=== PATIENT | female | born 1950 | race Caucasian/White ===

== ENCOUNTER 2016-08-06 12:39 | Observation (INO) | payer OTHER ==
[~2016-08-06] VITALS: Ht 157.5 cm; Wt 108.0 kg
[~2016-08-06 12:39] MED LIST: CLOP75TA PO; IBUP-974 PO; LISI10TA11 PO; [UNRECOGNIZED DRUG - CODE] PO
[2016-08-06 12:46] VITALS: BP 127/67
--- NOTE | 2016-08-06 15:51 | NUR ---
Patient taken to bed 06 via wheelchiar per tech.
[2016-08-06] MEDS ORDERED: NACL 0.9% 1,000 ML IV ONE (15:55)
[2016-08-06] MEDS ORDERED: ASPIRIN 81 MG TAB.CHEW PO ONE (15:55)
--- NOTE | 2016-08-06 16:00 | NUR ---
PT PRESENTS TO ER W/C/O CHEST PAIN SINCE THIS AM. HX CVA IN 1998 AND HTN. PAIN SCALE OF 10/10.PT STATES IT ALL STARTED TODAY.HX OF HTN AND CVA;AAOX4;DENIES SOB/N/V/F AT THIS TIME;STEADY GAIT;UNLABORED BREATHING W/SYMMETRICAL CHEST EXPANSION;HOB ELEVATED;NEEDS ATTENDED;SAFETY MEASURES DONE;ALL MONITORS IN PLACED;MD MADE AWARE OF PT'S CONDITION.
--- NOTE | 2016-08-06 16:02 | NUR ---
Dr. Goodrich evaluating patient at bedside.
[2016-08-06] MEDS ORDERED: NITROGLYCERIN 2% 1 GM PKT TP ONE (16:10)
[2016-08-06] MEDS ORDERED: KETOROLAC 30 MG/ML VIAL IVP ONE (16:10)
[2016-08-06 16:23] LABS: BASOPHILS # (AUTO) 0.2 K/uL (0.00-0.22); BASOPHILS % (AUTO) 2.7 % (0.0-2.0); EOSINOPHILS # (AUTO) 0.2 K/uL (0-0.4); EOSINOPHILS % (AUTO) 3.3 % (0.0-4.0); HEMATOCRIT 42.7 % (36-48); HEMOGLOBIN 13.9 g/dL (12.0-16.0); LYMPHOCYTES # (AUTO) 2.4 K/uL (2.5-16.5); LYMPHOCYTES % (AUTO) 31.9 % (20.5-51.1); MEAN CORPUSCULAR HEMOGLOBIN 29 pg (27-31); MEAN CORPUSCULAR HGB CONC 33 g/dL (33-37); MEAN CORPUSCULAR VOLUME 89 fL (80-94); MONOCYTES # (AUTO) 0.5 K/uL (0.8-1.0); MONOCYTES % (AUTO) 7.1 % (1.7-9.3); NEUTROPHILS # (AUTO) 4.2 K/uL (1.8-7.7); PLATELET COUNT (AUTO) 215 K/uL (140-450); RED BLOOD CELL COUNT(AUTO) 4.78 MIL/uL (4.20-5.40); RED CELL DISTRIBUTION WIDTH 13.5 % (11.6-13.7); WHITE BLOOD COUNT (AUTO) 7.5 K/uL (4.8-10.8)
[2016-08-06 16:42] LABS: ANION GAP 12.4 (8-16); CARBON DIOXIDE 27.6 mmol/L (21-32); CREATININE 0.8 mg/dL (0.6-1.3)
[2016-08-06 16:48] LABS: ALBUMIN 3.7 g/dL (3.4-5.0); INR 1.2 (0.8-1.2); PARTIAL THROMBOPLASTIN TIME 26.8 secs (22-35.6); TOTAL BILIRUBIN 0.3 mg/dL (0.0-1.0)
--- NOTE | 2016-08-06 17:09 | NUR ---
PT RESTING ON BED;NO ACUTE DISTRESS NOTED AT THIS TIME;WILL CONTINUE TO MONITOR PT.
--- NOTE | 2016-08-06 18:10 | NUR ---
PT IS SLEEPING;PUT O2 AT 2 LPM DUE TO O2 SAT IS 93%.O2 SAT WENT UP TO 97%
[2016-08-06] MEDS ORDERED: HYDROcodone/APAP 5/325 MG 1 TAB TAB PO PRN (18:40)
[2016-08-06] MEDS ORDERED: ACETAMINOPHEN 325 MG TAB PO PRN (18:40)
[2016-08-06] MEDS ORDERED: ONDANSETRON 4 MG/2 ML VIAL IVP PRN (18:40)
--- NOTE | 2016-08-06 19:15 | NUR ---
REPORT GIVEN TO LINK GARCIA.
--- NOTE | 2016-08-06 19:51 | NUR ---
Patient will be admitted to care of DR. DONALD. Admited to ICU. Will go to room 5. Belongings list completed. Report to REYNALDO MAZA.
[2016-08-06 20:09] VITALS: BP 153/68
--- NOTE | 2016-08-06 20:09 | NUR ---
RECEIVED PATIENT FROM ER, REPORT GIVEN BY RADHA/RN. PATIENT IS AAOX4, SR ON THE MONITOR, DENIES CHEST PAIN, IVF NS AT 100 ML.HR, IV SITE ON RIGHT HAND PATENT. SKIN INTACT, DENIES PAIN, HOB ELEVATED.
--- NOTE | 2016-08-06 20:19 | NUR ---
Pt report given to REYNALDO MAZA. Transfer of care at this time.
[2016-08-06] MEDS ORDERED: PNEUMOCOCCAL VACCINE 23 MCG/0.5 ML VIAL IMVAC SCH (20:40)
[2016-08-06] MEDS ORDERED: PHENYTOIN 100 MG CAPER PO ONE (21:55)
[2016-08-06] MEDS: PHENYTOIN 100 MG CAPER PO SCH (22:11)
[2016-08-07] VITALS: BP 118/61
--- NOTE | 2016-08-07 | NUR ---
PATIENT ASLEEP. EASILY AROUSED, SR ON THE MONITOR, DENIES CHEST PAIN, KEPT COMFORTABLE.
[2016-08-07 00:49] LABS: CREATINE KINASE MB 0.5 ng/mL (0-3.6)
--- NOTE | 2016-08-07 03:56 | NUR ---
PATIENT DENIES CHEST PAIN, NO SOB, TURNED AND REPOSITIONED, CALL LIGHT WITHIN REACH.
[2016-08-07 04:04] VITALS: BP 125/81
--- NOTE | 2016-08-07 04:50 | NUR ---
PT WAS TRANSFERRED FROM ICU TO TELE UNIT. RECEIVED REPORT FROM BUSINESS AGENT REYNALDO. PT AAOX4. PT'S VS STABLE, PT DENIES PAIN. PT'S SKIN IS INTACT. PT HAS IV TO RIGHT HAND G 22 SL. ORIENTED PT TO ROOM AND SURROUNDINGS AND USE OF CALL LIGHT. EXPLAINED PLAN OF CARE TO PT AND SHE VERBALIZES UNDERSTANDING. CALL LIGHT WITHIN REACH.
--- NOTE | 2016-08-07 04:54 | NUR ---
PATIENT TRANSFERRED TO [facility] PER WORM SORTER PERLA. REPORT GIVEN TO NANDA/LINK. PATIENT IN STABLE CONDITION. INFORMED PATIENT'S DAUGHTER KAYLEY THAT PATIENT WAS MOVED TO [facility].
[2016-08-07 05:47] LABS: BASOPHILS # (AUTO) 0.1 K/uL (0.00-0.22); BASOPHILS % (AUTO) 1.2 % (0.0-2.0); EOSINOPHILS # (AUTO) 0.2 K/uL (0-0.4); EOSINOPHILS % (AUTO) 2.9 % (0.0-4.0); HEMATOCRIT 38.3 % (36-48); HEMOGLOBIN 12.6 g/dL (12.0-16.0); LYMPHOCYTES # (AUTO) 1.8 K/uL (2.5-16.5); MEAN CORPUSCULAR HEMOGLOBIN 29 pg (27-31); MEAN CORPUSCULAR HGB CONC 33 g/dL (33-37); MEAN CORPUSCULAR VOLUME 89 fL (80-94); MONOCYTES # (AUTO) 0.5 K/uL (0.8-1.0); MONOCYTES % (AUTO) 7.3 % (1.7-9.3); NEUTROPHILS % (AUTO) 60.6 % (42.2-75.2); PLATELET COUNT (AUTO) 190 K/uL (140-450); RED BLOOD CELL COUNT(AUTO) 4.29 MIL/uL (4.20-5.40); RED CELL DISTRIBUTION WIDTH 13.7 % (11.6-13.7); WHITE BLOOD COUNT (AUTO) 6.6 K/uL (4.8-10.8)
[2016-08-07 05:50] LABS: ALBUMIN 3.1 g/dL (3.4-5.0); ANION GAP 13.7 (8-16); CALCIUM 8.1 mg/dL (8.5-10.1); CREATININE 0.8 mg/dL (0.6-1.3); POTASSIUM 3.7 mmol/L (3.5-5.1); TOTAL BILIRUBIN 0.3 mg/dL (0.0-1.0); TOTAL PROTEIN, SERUM 6.8 g/dL (6.4-8.2)
--- NOTE | 2016-08-07 06:05 | NUR ---
PT PLACED ON SEIZURE PRECAUTIONS, CALL LIGHT WITHIN REACH.
--- NOTE | 2016-08-07 07:05 | NUR ---
ENDORSED PLAN OF CARE TO LINK [place] FOR CONTINUITY OF CARE. PT IN STABLE CONDITION.
--- NOTE | 2016-08-07 07:25 | NUR ---
RECEIVED PT IN BED ALERT, AWAKE, ORIENTED X4. NO SOB NOTED. ON ROOM AIR. BREATHING EVEN AND UNLABORED. DENIES ANY PAIN OR DISCOMFORT AT THIS TIME. PT VERBALIZED NEED TO USE THE BATHROOM. BEDPAN OFFERED, PT ABLE TO VOID 250 ML OF YELLOW CLEAR URINE. PT HAS A HISTORY OF RIGHT SIDED WEAKNESS. POSITIVE BOWEL SOUNDS NOTED ON FOUR QUADRANTS. SAFETY PRECAUTION IN PLACE. CALL LIGHT WITHIN REACH.
[2016-08-07] MEDS ORDERED: REGADENOSON 0.4 MG/5 ML SYR IV ONE (07:30)
--- NOTE | 2016-08-07 07:30 | NUR ---
KEPT PT ON NPO FOR SCHEDULED LEXISCAN
[2016-08-07 08:00] VITALS: BP 123/50
[2016-08-07 08:32] LABS: CREATINE KINASE MB 0.6 ng/mL (0-3.6)
--- NOTE | 2016-08-07 08:40 | NUR ---
PATIENT HAS BEEN SCREENED AND CATEGORIZED HIGH NUTRITION RISK. PATIENT WILL BE SEEN WITHIN 1-2 DAYS OF ADMISSION. 08/07/16-08/08/[address]
[2016-08-07] MEDS ORDERED: ASPIRIN 325 MG TAB PO SCH (09:00)
[2016-08-07] MEDS ORDERED: ASPIRIN 325 MG TABEC PO SCH (09:00)
[2016-08-07] MEDS: PHENYTOIN 100 MG CAPER PO SCH ×3 (09:00→17:10)
[2016-08-07] MEDS ORDERED: ENOXAPARIN 40 MG/0.4 ML SYR SUBQ SCH (09:00)
[2016-08-07] MEDS ORDERED: LISINOPRIL 10 MG TAB PO SCH (09:00)
--- NOTE | 2016-08-07 09:00 | NUR ---
ALL MEDS SCHEDULED PO AND LOVENOX HELD, DUE TO PT IS SCHEDULED FOR LEXISCAN. PT MAINTAINED NPO.
--- NOTE | 2016-08-07 09:26 | NUR ---
CALLED DR. TORRES MADE AWARE THAT PT IS UNDER HIS CARE AND SCHEDULED FOR [facility].
--- NOTE | 2016-08-07 11:37 | NUR ---
YASMEEN FROM NUCLEAR DEPARTMENT CAME AND WHEELED PT FOR THE LEXISCAN. PT ON STABLE CONDITION DENIES ANY PAIN OR DISCOMFORT AT THIS TIME.
[2016-08-07 14:00] VITALS: BP 140/70
--- NOTE | 2016-08-07 15:05 | NUR ---
PT CAME BACK FROM [facility]. WITH NUCLEAR MEDICINE DEPARTMENT STAFF YASMEEN. PT ON STABLE CONDITION. DENIES ANY PAIN OR DISCOMFORT AT THIS TIME.
--- NOTE | 2016-08-07 18:00 | NUR ---
DISCHARGE ORDERS MADE BY DR. NULL AND CARRIED OUT. HEALTH TEACHINGS GIVEN. DISCHARGE INSTRUCTION DONE AND SIGNED BY PT. VITAL SIGNS STABLE. PT ON STABLE CONDITION. ARM BAND REMOVED. IV CANNULA REMOVED AND INTACT. WHEELED PT OUTSIDE BY RN WITH FAMILY TO THEIR FAMILY OWNED VEHICLE.
[2016-08-07 18:44] VITALS: BP 132/55
[2016-08-08] MEDS ORDERED: CLOPIDOGREL 75 MG TAB PO SCH (09:00)
== END 2016-08-07 18:00 | disposition home or self-care (01) ==
LOC: MED 12:39 → UNDOADMIN 18:44 → MIC 18:44 → MTU 08-07 05:00
PROVIDERS: ADMIT Internal Medicine Pulmonary Disease; ATTEND Internal Medicine Pulmonary Disease
DX: R07.9 Chest pain, unspecified (principal); R56.9 Unspecified convulsions; Z86.79 Personal history of other diseases of the circulatory system
CPT/HCPCS: 36415; 71010; 80053; 80185; 82550; 82553; 83735; 84443; 84484; 85025; 85610; 85730; 87081; 93005; 93017; 96361; 96374; 99285; A9500; A9502; G0378; J1885; J2785; J7030

== ENCOUNTER 2017-07-11 18:57 | Inpatient (IN) | payer OTHER ==
[~2017-07-11] VITALS: Ht 160 cm; Wt 101.6 kg
[~2017-07-11 18:57] MED LIST changes: +PHEN-1900 PO; -[UNRECOGNIZED DRUG - CODE] PO
[2017-07-11 19:13] VITALS: BP 136/66
--- NOTE | 2017-07-11 19:13 | NUR ---
PT TAKEN TO BED 3
--- NOTE | 2017-07-11 19:35 | NUR ---
CAME IN WITH C/O HEADACHE LAST NIGHT, AND CHEST PAIN STARTED THIS MORNING AT 1100HOURSPATIENT PRESENTS TO ED WITH CHEST PAIN . PT C/O HEADACHE LAST NIGHT, AND CHEST PAIN STARTED THIS MORNING AT 1100HOURS . SKIN IS PINK/WARM/DRY; AAOX4 WITH EVEN AND STEADY GAIT; LUNGS CLEAR BL; HR EVEN AND REGULAR; PT DENIES ANY FEVER, CP, SOB, OR COUGH AT THIS TIME; PATIENT STATES PAIN OF 9/10 AT THIS TIME; PATIENT POSITIONED FOR COMFORT; HOB ELEVATED; BEDRAILS UP X2; BED DOWN. ER MD MADE AWARE OF PT STATUS.
--- NOTE | 2017-07-11 19:35 | NUR ---
Patient being evaluated by physician at bedside.
--- NOTE | 2017-07-11 19:48 | NUR ---
X-RAY AT BEDSIDE
[2017-07-11 20:06] LABS: BASOPHILS # (AUTO) 0.3 K/uL (0.00-0.22); EOSINOPHILS # (AUTO) 0.2 K/uL (0-0.4); HEMATOCRIT 39.2 % (36-48); HEMOGLOBIN 12.7 g/dL (12.0-16.0); LYMPHOCYTES # (AUTO) 1.7 K/uL (2.5-16.5); MEAN CORPUSCULAR HEMOGLOBIN 28 pg (27-31); MEAN CORPUSCULAR HGB CONC 32 g/dL (33-37); MEAN CORPUSCULAR VOLUME 87 fL (80-94); MONOCYTES # (AUTO) 0.5 K/uL (0.8-1.0); NEUTROPHILS # (AUTO) 2.9 K/uL (1.8-7.7); PLATELET COUNT (AUTO) 195 K/uL (140-450); RED BLOOD CELL COUNT(AUTO) 4.49 MIL/uL (4.20-5.40); RED CELL DISTRIBUTION WIDTH 14.6 % (11.6-13.7); WHITE BLOOD COUNT (AUTO) 5.6 K/uL (4.8-10.8)
[2017-07-11 20:22] LABS: ANION GAP 11.8 (8-16); CARBON DIOXIDE 26.8 mmol/L (21-32); CREATININE 0.9 mg/dL (0.6-1.3); POTASSIUM 3.6 mmol/L (3.5-5.1)
[2017-07-11 20:48] LABS: ALBUMIN 3.2 g/dL (3.4-5.0); TOTAL BILIRUBIN 0.2 mg/dL (0.0-1.0)
[2017-07-11] MEDS ORDERED: diphenhydrAMINE 50 MG/ML VIAL IVP ONE (21:05)
[2017-07-11] MEDS ORDERED: PROCHLORPERAZINE 10 MG/2 ML VIAL IVP ONE (21:05)
[2017-07-11] MEDS ORDERED: ONDANSETRON 4 MG/2 ML VIAL IVP PRN (21:20)
[2017-07-11] MEDS ORDERED: ACETAMINOPHEN 325 MG TAB PO PRN (21:20)
[2017-07-11] MEDS ORDERED: MORPHINE SULFATE 2 MG/ML SYR IVP PRN (21:20)
--- NOTE | 2017-07-11 21:44 | NUR ---
Patient will be admitted to care of . Admited to TELE FLOOR. Will go to rooM 106. Belongings list completed. Report to MADELIN MAZA.
--- NOTE | 2017-07-11 21:44 | NUR ---
Pt transferred to Tele via BED TO 106A .
[2017-07-11 21:50] VITALS: BP 130/51
--- NOTE | 2017-07-11 21:50 | NUR ---
RECIEVED PT FROM ER IN STABLE CONDITION. HANDOFF REPORT FROM FUNMILAYO MAZA. PT AAOX4, NO S/S OF DISTRESS NOTED. RR EVEN/UNLABORED. IV TO R HAND 22G, PATENT AND INTACT, SALINE LOCKED. BOWEL SOUNDS PRESENT. SKIN WARM AND DRY TO TOUCH, SKIN IS INTACT. PT PRESENTED TO ER WITH CHEST PAIN, DENIES CHEST PAIN AT THIS TIME. DAUGHTER AT THE BEDSIDE WITH PT. INITIAL ASSESSMENT COMPLETED. PLAN OF CARE DISCUSSED WITH PT AND DAUGHTER, ALL SAFETY PRECAUTIONS MET, CALL LIGHT WITHIN REACH, WILL CONTINUE TO MONITOR.
[2017-07-12] VITALS: BP 115/58
--- NOTE | 2017-07-12 | NUR ---
PT RESTING COMFORTABLY IN BED,NO S/S OF DISTRESS NOTED. ALL SAFETY PRECAUTIONS MET, WILL CONTINUE TO MONITOR.
--- NOTE | 2017-07-12 02:12 | NUR ---
PT RESTING COMFORTABLY IN BED,NO S/S OF DISTRESS NOTED. ALL SAFETY PRECAUTIONS MET, WILL CONTINUE TO MONITOR.
[2017-07-12 04:00] VITALS: BP 110/68
[2017-07-12 04:21] LABS: HEMATOCRIT 38.3 % (36-48); HEMOGLOBIN 12.4 g/dL (12.0-16.0); MEAN CORPUSCULAR HEMOGLOBIN 29 pg (27-31); MEAN CORPUSCULAR HGB CONC 32 g/dL (33-37); MEAN CORPUSCULAR VOLUME 88 fL (80-94); PLATELET COUNT (AUTO) 183 K/uL (140-450); RED BLOOD CELL COUNT(AUTO) 4.35 MIL/uL (4.20-5.40); RED CELL DISTRIBUTION WIDTH 14.3 % (11.6-13.7); WHITE BLOOD COUNT (AUTO) 6.5 K/uL (4.8-10.8)
[2017-07-12 04:47] LABS: ANION GAP 10.5 (8-16); CARBON DIOXIDE 26.2 mmol/L (21-32); CREATININE 0.8 mg/dL (0.6-1.3); POTASSIUM 3.7 mmol/L (3.5-5.1); TOTAL BILIRUBIN 0.2 mg/dL (0.0-1.0)
[2017-07-12 05:33] LABS: CREATINE KINASE MB 0.6 ng/mL (0-3.6)
[2017-07-12 05:40] LABS: EOSINOPHILS % (MANUAL) 3 % (0-4); LYMPHOCYTES % (MANUAL) 35 % (20-46); MONOCYTES % (MANUAL) 6 % (5-12)
--- NOTE | 2017-07-12 07:32 | NUR ---
REPORT GIVEN TO DAY SHIFT NURSE FOR CONTINUITY OF CARE, PT IN STABLE CONDITION
--- NOTE | 2017-07-12 07:33 | NUR ---
RECEIVED REPORT FROM BODY SHOP MECHANIC NURSE AT BEDSIDE FOR CONTINUITY OF CARE. PATIENT RESTING WITH EYES CLOSED. EASILY WOKEN. NO ACUTE DISTRESS NOTED. AT THIS TIME . PT WITH SL. TO RIGHT HAND 22G. WILL CONT TO MONITOR.
[2017-07-12 08:00] VITALS: BP 134/59
--- NOTE | 2017-07-12 08:00 | NUR ---
INITIAL ASSESSMENT PERFORMED. PATIENT ALERT AND ABLE TO MAKE NEEDS KNOWN. ENGLISH SPEAKING. NO ACUTE DISTRESS NOTED. PATIENT WITH SL TO RIGHT HAND 22G. PATENT AND INTACT. LUNG SOUNDS CLEAR X ALL LOBES. BOWEL SOUNDS ACTIVE. PATIENT VERBALIZED CHEST PAIN IMPROVED SINCE LAST NIGHT. STATED 08/05 THIS AM PATIENT REFUSED PAIN MEDICATION WHEN OFFERED. STATED IT WAS IMPROVED AND TOLERABLE. SKIN INTACT. DISCUSSED PLAN OF CARE AT BEDSIDE. PATIENT VERBALIZED UNDERSTANDING AND AGREEMENT. CALL LIGHT WITHIN REACH. WILL CONT TO MONITOR.
[2017-07-12] MEDS ORDERED: LISINOPRIL 10 MG TAB PO SCH (09:00)
[2017-07-12] MEDS ORDERED: ENOXAPARIN 30 MG/0.3 ML SYR SUBQ SCH (09:00)
[2017-07-12] MEDS ORDERED: CLOPIDOGREL 75 MG TAB PO SCH (09:00)
[2017-07-12] MEDS ORDERED: ASPIRIN 81 MG TAB.CHEW PO SCH (09:00)
[2017-07-12] MEDS: PHENYTOIN 100 MG CAPER PO SCH ×2 (09:07→13:04)
--- NOTE | 2017-07-12 09:22 | NUR ---
PT REFUSED ASA. STATED THAT SHE TAKES PLAVIX AND DOES NOT WANT TO TAKE ASA. EXPLAINED RISKS AND BENEFITS X 3. PATIENT CONT TO REFUSE. WILL CONT TO MONITOR PT.
--- NOTE | 2017-07-12 10:14 | NUR ---
PT RESTING IN BED WITH EYES CLOSED. NO ACUTE DISTRESS NOTED. RESP EVEN AND UNLABORED. EASILY WOKEN. WILL CONT TO MONITOR.
[2017-07-12 12:00] VITALS: BP 131/48
--- NOTE | 2017-07-12 12:30 | NUR ---
PATIENT ALERT AND ABLE TO MAKE NEEDS KNOWN. NO ACUTE DISTRESS NOTED. PATIENT AWARE OF DC PENDING AUTO BODY ESTIMATOR CLEARANCE. FRIEND AT BEDSIDE. CALL LIGHT WITHIN REACH. WILL CONT TO MONITOR.
--- NOTE | 2017-07-12 14:29 | NUR ---
PATIENT RESTING IN BED WITH EYES CLOSED . NO ACUTE DISTRESS NOTED. RESP EVEN AND UNLABORED. CALL LIGHT WITHIN REACH. WILL CONT TO MONITOR.
--- NOTE | 2017-07-12 15:40 | NUR ---
DISCHARGE ORDER PLACED BY DR AGUIRRE. PT MADE AWARE AND IN AGREEMENT. GATHERING DISCHARGE INSTRUCTIONS.
--- NOTE | 2017-07-12 16:10 | NUR ---
DISCHARGE INSTRUCTIONS GIVEN TO PATIENT PATIENT VERBALIZED UNDERSTANDING AND AGREEMENT. ALL BELONGINGS ACCOUNTED FOR. DISCUSSED MEDICATION REGIMEN PATIENT VERBALIZED UNDERSTANDING AND AGREEMENT.IV TO RIGHT HAND REMOVED LUMEN INTACT. PT TOLERATED WELL. TELE MONITOR REMOVED. ID BANDS REMOVED. INSTRUCTED PATIENT TO INFORM WHEN READY TO BE ESCORTED TO FRONT OF LOBBY.
--- NOTE | 2017-07-12 16:20 | NUR ---
ESCORTED PATIENT OUT OF UNIT TO FRONT LOBBY. PATIENT LEFT FACILITY WITHOUT DIFFICULTIES VIA PRIVATE VEHICLE .
== END 2017-07-12 16:20 | disposition home or self-care (01) | DRG 206 ==
LOC: MED 18:57 → MTU 21:21
PROVIDERS: ADMIT Internal Medicine; ATTEND Internal Medicine
DX: M94.0 Chondrocostal junction syndrome [Tietze] (principal); E03.9 Hypothyroidism, unspecified; I10 Essential (primary) hypertension; G40.909 Epilepsy, unspecified, not intractable, without status epilepticus; R73.03 Prediabetes; Z86.73 Personal history of transient ischemic attack (TIA), and cerebral infarction without residual deficits
CPT/HCPCS: 36415; 71045; 80053; 82550; 82553; 83690; 83880; 84484; 85025; 87081; 93005; 96374; 96375; 99285; J0780; J1200; J1650; Q0092

== ENCOUNTER 2017-11-12 22:34 | Emergency (ER) | payer OTHER ==
[~2017-11-12] VITALS: Ht 154.9 cm; Wt 111.8 kg
[2017-11-12 22:48] VITALS: BP 117/60
[2017-11-12 23:46] LABS: WHITE BLOOD COUNT (AUTO) 6.7 K/uL (4.8-10.8)
[2017-11-12 23:47] LABS: HEMATOCRIT 39.5 % (36-48); HEMOGLOBIN 12.9 g/dL (12.0-16.0); MEAN CORPUSCULAR HEMOGLOBIN 29 pg (27-31); MEAN CORPUSCULAR HGB CONC 33 g/dL (33-37); MEAN CORPUSCULAR VOLUME 87.8 fL (80-94); PLATELET COUNT (AUTO) 206 K/uL (140-450); RED CELL DISTRIBUTION WIDTH 15.3 % (11.6-13.7)
[2017-11-12 23:48] LABS: BASOPHILS % (AUTO) 0.6 % (0.0-2.0); EOSINOPHILS # (AUTO) 0.3 K/uL (0-0.4); EOSINOPHILS % (AUTO) 4.3 % (0.0-4.0); LYMPHOCYTES # (AUTO) 2.2 K/uL (2.5-16.5); MONOCYTES # (AUTO) 0.7 K/uL (0.8-1.0); MONOCYTES % (AUTO) 9.9 % (1.7-9.3); NEUTROPHILS # (AUTO) 3.5 K/uL (1.8-7.7); NEUTROPHILS % (AUTO) 52.2 % (42.2-75.2)
[2017-11-12 23:50] LABS: ANION GAP 15.3 (8-16); CARBON DIOXIDE 24.9 mmol/L (21-32); CREATININE 1.1 mg/dL (0.6-1.3); POTASSIUM 3.2 mmol/L (3.5-5.1)
[2017-11-12 23:55] LABS: TOTAL BILIRUBIN 0.2 mg/dL (0.0-1.0)
[2017-11-12 23:56] LABS: ALBUMIN 3.5 g/dL (3.4-5.0)
[2017-11-13 00:23] LABS: APPEARANCE,URINE CLEAR (CLEAR); BLOOD, URINE TRACE (NEGATIVE); COLOR,URINE YELLOW (YELLOW); PH,URINE 5.5 (5.0-9.0); UGLUCOSE NEGATIVE (NEGATIVE)
[2017-11-13 00:24] LABS: BILIRUBIN,URINE NEGATIVE (NEGATIVE); LEUKOCYTE ESTERASE ,URINE NEGATIVE (NEGATIVE); NITRITE, URINE NEGATIVE (NEGATIVE); RBC,URINE 0-5 (RARE) /HPF (0-5); WBC,URINE 0-5 (RARE) /HPF (0-5)
[2017-11-13] MEDS ORDERED: POTASSIUM CHLORIDE 20% 40 MEQ/15 ML UDC PO ONE (00:25)
[2017-11-13 01:28] VITALS: BP 133/52
== END 2017-11-13 01:28 | disposition home or self-care (01) ==
LOC: MED 22:34
DX: R60.0 Localized edema (principal); E87.6 Hypokalemia; E03.9 Hypothyroidism, unspecified; E66.01 Morbid (severe) obesity due to excess calories; Z68.42 Body mass index [BMI] 45.0-49.9, adult; Z86.73 Personal history of transient ischemic attack (TIA), and cerebral infarction without residual deficits; Z79.899 Other long term (current) drug therapy
CPT/HCPCS: 36415; 71045; 80053; 81001; 83880; 85025; 99285

== ENCOUNTER 2019-03-17 16:46 | Inpatient (IN) | payer OTHER, MEDICAID ==
[~2019-03-17] VITALS: Ht 154.9 cm; Wt 109.8 kg
[2019-03-17 17:05] VITALS: BP 136/59
--- NOTE | 2019-03-17 17:30 | NUR ---
PATIENT BIB DAUGHTER C/O HAVING CRUSHING CP 9/10 RADIATING TO LEFT ARM, LEFT SHOULDER, AND POSTERIOR NECK, BURNING EPIGASTRIC PAIN 9/10, DIZZINESS, AND NAUSEA FOR 3 DAYS. PMH: HTN, HLD, HYPOTHYRODISM . PT IS AAOX4, LUNGS CLEAR BL; HR EVEN AND REGULAR; VSS; PATIENT POSITIONED FOR COMFORT; HOB ELEVATED; BEDRAILS UP X2; BED DOWN. ER MD MADE AWARE OF PT STATUS.
[2019-03-17] MEDS ORDERED: NITROGLYCERIN 0.4 MG TAB SL ONE (17:45)
[2019-03-17] MEDS ORDERED: ASPIRIN 81 MG TAB.CHEW PO ONE (17:45)
--- NOTE | 2019-03-17 17:50 | NUR ---
PATIENT REFUSED TO TAKE ASPIRIN AT THIS TIME DUE TO TAKE PLAVIX DAILY, DR. BRADLEY MADE AWARE.
--- NOTE | 2019-03-17 17:55 | NUR ---
Patient being evaluated by physician at bedside.
--- NOTE | 2019-03-17 18:06 | NUR ---
dairy lab technician at bedside.
[2019-03-17 18:39] LABS: BASOPHILS % (AUTO) 0.5 % (0.0-2.0); EOSINOPHILS # (AUTO) 0.2 K/uL (0-0.4); EOSINOPHILS % (AUTO) 2.7 % (0.0-4.0); HEMATOCRIT 38.1 % (36-48); LYMPHOCYTES # (AUTO) 1.9 K/uL (2.5-16.5); LYMPHOCYTES % (AUTO) 29.7 % (20.5-51.1); MEAN CORPUSCULAR HEMOGLOBIN 30 pg (27-31); MEAN CORPUSCULAR HGB CONC 34 g/dL (33-37); MEAN CORPUSCULAR VOLUME 87.5 fL (80-94); MONOCYTES # (AUTO) 0.5 K/uL (0.8-1.0); MONOCYTES % (AUTO) 8.3 % (1.7-9.3); NEUTROPHILS # (AUTO) 3.8 K/uL (1.8-7.7); NEUTROPHILS % (AUTO) 58.8 % (42.2-75.2); PLATELET COUNT (AUTO) 238 K/uL (140-450); RED BLOOD CELL COUNT(AUTO) 4.35 MIL/uL (4.20-5.40); RED CELL DISTRIBUTION WIDTH 15.8 % (11.6-13.7); WHITE BLOOD COUNT (AUTO) 6.4 K/uL (4.8-10.8)
[2019-03-17 18:48] LABS: ANION GAP 12.4 (8-16); CARBON DIOXIDE 28.9 mmol/L (21-32); CREATININE 0.8 mg/dL (0.6-1.3); POTASSIUM 3.3 mmol/L (3.5-5.1)
[2019-03-17 18:56] LABS: ALBUMIN 3.4 g/dL (3.4-5.0); TOTAL BILIRUBIN 0.3 mg/dL (0.0-1.0)
[2019-03-17 19:03] LABS: PROTHROMBIN TIME 10.7 secs (10.8-13.4)
--- NOTE | 2019-03-17 19:03 | NUR ---
PT STATED FEELING BETTER, CP WENT DOWN TO 4/10, DR. BRADLEY EXPLAINED THE NEED TO ADMIT TO HOSPITAL FOR FURTHER EVALUATION, PT AND PT'S DAUGHTER VERBALIZED UNDERSTANDING.
--- NOTE | 2019-03-17 19:12 | NUR ---
REPORT GIVEN TO PERSONAL FINANCIAL REPRESENTATIVE NURSE FOR CONTINUE OF CARE.
[2019-03-17] MEDS ORDERED: CHLO25TA33 PO (19:37)
[2019-03-17] MEDS ORDERED: LEVO0.0511 PO (19:45)
--- NOTE | 2019-03-17 19:45 | NUR ---
PT APPEARS TO BE IN NO DISTRESS AT THIS TIME. PT VSS. PT STATES SHE HAS CHESTP PAIN 4/10 NON-RADIATING. PT RECIVED NITRO WITH RELIEF. PT HAS HX OF STENT PLACEMENT AND CVA IN PAST. PT ALSO HAS HX OF CVA WITH RIGHT SIDE WEAKNESS.
[2019-03-17] MEDS ORDERED: LACT10SO4 PO (19:51)
[2019-03-17] MEDS ORDERED: ATOR40TA40 PO (19:51)
[2019-03-17] MEDS ORDERED: POTA20TE92 PO (19:51)
[2019-03-17] MEDS ORDERED: RANI150T8 PO (19:52)
[2019-03-17] MEDS ORDERED: LOSA50TA66 PO (19:53)
[2019-03-17] MEDS ORDERED: DOCUSATE SODIUM 100 MG GELCAP PO PRN (20:20)
[2019-03-17] MEDS ORDERED: ONDANSETRON 4 MG/2 ML VIAL IM/IVP PRN (20:20)
[2019-03-17] MEDS ORDERED: ACETAMINOPHEN 325 MG TAB PO PRN (20:20)
[2019-03-17] MEDS ORDERED: HYDROcodone/APAP 7.5/325 MG 1 TAB PO PRN (20:20)
[2019-03-17] MEDS ORDERED: MORPHINE SULFATE 2 MG/ML SYR IVP PRN (20:20)
[2019-03-17 20:43] LABS: PHOSPHORUS 3.1 mg/dL (2.5-4.9); THYROID STIMULATING HORMONE 2.58 uIU/mL (0.34-3.74)
[2019-03-17 21:30] VITALS: BP 127/59
--- NOTE | 2019-03-17 21:30 | NUR ---
RECEIVED BEDSIDE REPORT FROM ED RN JACK, FOR PT'S CONTINUITY OF CARE. PT IS AAOX4, MOSTLY NIGERIEN SPEAKING, DAUGHTER AT BEDSIDE, ON TABLE GAMES SHIFT MANAGER, ON ROOM AIR, HAS RIGHT HAND 20G SALINE LOCK, AND DENIES ANY PAIN AT THIS TIME. EXPLAINED TO PT AND DAUGHTER THE EMPLOYEE SERVICES MANAGER ROUTINE, THEY VERBALIZED UNDERSTANDING. FALL AND SEIZURE PRECAUTION IN PLACE. BED IS ON LOW POSITION, SIDE RAILS ARE UP, AND CALL LIGHT IS WITHIN REACH. PATIENT'S NEEDS ARE MET. WILL MONITOR PT THROUGHOUT SHIFT.
--- NOTE | 2019-03-17 21:30 | NUR ---
Pt resting in bed, rr even and unlabored. VS noted. Denies any pain at this time. All needs met. Patient will be admitted to care of DR ANDERSON. Admited to TELE. Will go to room 127A. Belongings list completed. Report to TYRONE MAZA.
[2019-03-17 22:30] LABS: APPEARANCE,URINE CLEAR (CLEAR); BILIRUBIN,URINE NEGATIVE (NEGATIVE); BLOOD, URINE NEGATIVE (NEGATIVE); COLOR,URINE YELLOW (YELLOW); LEUKOCYTE ESTERASE ,URINE NEGATIVE (NEGATIVE); NITRITE, URINE NEGATIVE (NEGATIVE); UGLUCOSE NEGATIVE (NEGATIVE)
[2019-03-17] MEDS: NACL 0.9% 1,000 ML IV SCH (22:40)
[2019-03-18] VITALS: BP 123/52
--- NOTE | 2019-03-18 | NUR ---
VS CHECKED AND CHARTED. PT DENIES ANY PAIN AT THIS TIME. WILL CONTINUE TO MONITOR PT.
--- NOTE | 2019-03-18 02:05 | NUR ---
MADE ROUNDS. PT LYING DOWN ASLEEP WITH NO SIGNS OF DISTRESS. WILL CONTINUE TO MONITOR PT.
--- NOTE | 2019-03-18 02:57 | NUR ---
PT C/O CHEST PAIN 11/04 , ADMINISTERED PRN IVP PAIN MEDICATION ORDERED. ASSISTED PT TO THE RESTROOM, PT TOLERATED ACTIVITY WELL. WILL CONTINUE TO MONITOR PT.
[2019-03-18 04:00] VITALS: BP 141/64
--- NOTE | 2019-03-18 04:00 | NUR ---
VS CHECKED AND CHARTED. PT DENIES ANY PAIN AT THIS TIME. WILL CONTINUE TO MONITOR PT.
[2019-03-18 06:13] LABS: BASOPHILS % (AUTO) 0.5 % (0.0-2.0); EOSINOPHILS # (AUTO) 0.2 K/uL (0-0.4); EOSINOPHILS % (AUTO) 3.3 % (0.0-4.0); HEMATOCRIT 35.4 % (36-48); HEMOGLOBIN 11.7 g/dL (12.0-16.0); LYMPHOCYTES # (AUTO) 1.9 K/uL (2.5-16.5); LYMPHOCYTES % (AUTO) 30.6 % (20.5-51.1); MEAN CORPUSCULAR HEMOGLOBIN 29 pg (27-31); MEAN CORPUSCULAR HGB CONC 33 g/dL (33-37); MEAN CORPUSCULAR VOLUME 87.7 fL (80-94); MONOCYTES # (AUTO) 0.6 K/uL (0.8-1.0); NEUTROPHILS # (AUTO) 3.6 K/uL (1.8-7.7); NEUTROPHILS % (AUTO) 56.6 % (42.2-75.2); PLATELET COUNT (AUTO) 225 K/uL (140-450); RED BLOOD CELL COUNT(AUTO) 4.03 MIL/uL (4.20-5.40); RED CELL DISTRIBUTION WIDTH 15.5 % (11.6-13.7); WHITE BLOOD COUNT (AUTO) 6.3 K/uL (4.8-10.8)
[2019-03-18] MEDS: NACL 0.9% 1,000 ML IV SCH ×2 (06:14→08:40)
[2019-03-18] MEDS: LEVOTHYROXINE 0.05 MG TAB PO SCH (06:14)
--- NOTE | 2019-03-18 06:15 | NUR ---
PT ASLEEP. ADMINISTERED SCHEDULED PO MEDICATION ORDERED. PT DENIES ANY PAIN AT THIS TIME. WILL ENDORSE TO AM SHIFT RN FOR PT'S CONTINUITY OF CARE.
[2019-03-18 06:38] LABS: ANION GAP 12.6 (8-16); CARBON DIOXIDE 27.9 mmol/L (21-32); CREATININE 0.7 mg/dL (0.6-1.3)
[2019-03-18 06:49] LABS: CHOL/HDL RATIO 4.3 (1-4.5)
[2019-03-18 06:53] LABS: MAGNESIUM 1.8 mg/dL (1.8-2.4); PHOSPHORUS 4.3 mg/dL (2.5-4.9)
[2019-03-18 07:01] LABS: POTASSIUM 2.5 mmol/L (3.5-5.1)
--- NOTE | 2019-03-18 07:02 | NUR ---
LAB CALLED FOR CRITICAL LAB VALUE POTASSIUM 2.5, REPORTED TO YUAN BURNS.
--- NOTE | 2019-03-18 07:02 | NUR ---
RECEIVED PATIENT FROM PM NURSETYRONE. PATIENT IS ON BED, SIDE-LYING ON THE LEFT SIDE, ALERT, AWAKE, ORIENTED X 4. NO SIGNS DISTRESS NOTED. RESPIRATIONS EVEN AND UNLABORED, ON ROOM AIR. IV ON RIGHT HAND GAUGE 20 RUNNING 0.9%NS 100 ML/HR. IV IS PATENT, CLEAN, DRY, AND INTACT. BED IN LOW POSITION. CALL LIGHT IS WITHIN REACH. WILL CONTINUE TO MONITOR.
[2019-03-18 07:03] LABS: PHENYTOIN (DILANTIN) 1.6 ug/ml (10.0-20.0)
[2019-03-18 08:00] VITALS: BP 122/50
--- NOTE | 2019-03-18 08:26 | NUR ---
PATIENT HAS BEEN SCREENED AND CATEGORIZED MODERATE NUTRITION RISK. PATIENT WILL BE SEEN WITHIN 3-5 DAYS OF ADMISSION. 03/20/19 03/22/[address]
[2019-03-18] MEDS: CLOPIDOGREL 75 MG TAB PO SCH (08:34)
[2019-03-18] MEDS: LOSARTAN 50 MG TAB PO SCH (08:34)
[2019-03-18] MEDS: ATORVASTATIN 20 MG TAB PO SCH (08:35)
[2019-03-18] MEDS: PHENYTOIN 100 MG CAPER PO SCH ×3 (08:38→17:18)
--- NOTE | 2019-03-18 08:40 | NUR ---
ADMINISTERED PO MEDICATIONS. EDUCATED ON INDICATIONS AND SIDE EFFECTS. PATIENT VERBALIZED UNDERSTANDING. PATIENT TOLERATED WELL. WILL CONTINUE TO MONITOR.
--- NOTE | 2019-03-18 09:22 | NUR ---
PT EVALUATION WAS BEING DONE TO PT NOW. NO SIGN OF DISTRESS NOTED
--- NOTE | 2019-03-18 11:28 | NUR ---
DISCHARGE PLANNING: CONTACTED JORGE GOLDMAN OF [employer] AT [phone], NO ANSWER. LEFT MESSAGE. Addendum: 03/18/19 at 1223 by Rubina Luna CM RECEIVED A CALL BACK FROM JONES PATEL, I ASKED FOR AUTH FOR THE STAY TODAY. HE STATED THE AUTH THAT HE PROVIDED LAST NIGHT UNTIL THE PATIENT IS DC. MIMI LYNCH MADE AWARE. Addendum: 03/19/19 at 1457 by Rubina Luna CM LATE ENTRY: RECEIVED A DC ORDER FOR HOME HEALTH FOR PHYSICAL THERAPY AND HOME NURSING SAFETY EVAL. ORDER FAXED TO AT [phone]. CONTACTED [employer] AT [phone], ABLE TO SPEAK TO JORGE GOLDMAN. HE PROVIDED ME WITH [employer] [phone]. AUTH [id number] FOR 3 RN AND 3 PT. CONTACTED [facility], ABLE TO SPEAK TO MALA (INTAKE). SHE SAID THEY DO NOT HAVE A NURSE WHO VISITS THE PATIENT'S ADDRESS. CONTACTED JORGE GOLDMAN AND MADE HIM AWARE. HE PROVIDED ME WITH 3 MORE CONTRACTED HH: [facility] [phone]; [facility] [phone]; AND [facility] [phone]. CONTACTED [facility] TO THE PROVIDED NUMBER, ABLE TO SPEAK TO DORI. SHE STATED TO GO AHEAD SEND THE REFERRAL TO FAX NUMBER [phone]. REFERRAL SENT. Addendum: 03/19/19 at 1543 by Rubina Luna CM CONTACTED DORI AT [facility], SHE STATED SHE WILL CONTACT JORGE GOLDMAN OF [facility] TO GET AN AUTH. AND SHE WILL CALL ME BACK.
[2019-03-18 12:00] VITALS: BP 116/41
--- NOTE | 2019-03-18 12:41 | NUR ---
GIVEN PO DILATIN. EDUCATED ON PURPOSE AND SIDE EFFECTS. PATIENT VERBALIZED UNDERSTANDING. PATIENT TOLERATED WELL. PATIENT IS ON BED AND EATING LUNCH. NO SIGNS OF DISTRESS. BED IN LOW POSITION. CALL LIGHT WITHIN REACH.
--- NOTE | 2019-03-18 12:53 | NUR ---
POTASSIUM LEVEL 2.5 MEQ. PO KDUR 40 MEQ GIVEN. EDUCATED PATIENT ON MEDICATION PURPOSE AND SIDE EFFECTS. PATIENT VERBALIZED UNDERSTANDING. WILL CONTINUE TO MONITOR.
[2019-03-18] MEDS ORDERED: POTASSIUM CHLORIDE 10 MEQ TABER PO SCH (13:00)
[2019-03-18] MEDS ORDERED: POTASSIUM CHLORIDE 40 MEQ, LIDOCAINE MPF 1% 25 MG in NACL 0.9% 250 ML IV SCH (13:30)
--- NOTE | 2019-03-18 14:02 | NUR ---
POTASSIUM LEVEL IS 2.5. ADMINISTERED POTASSIUM CHLORIDE 40 MEQ IVF ORDERED. EDUCATED PATIENT ON THE PURPOSE AND SIDE EFFECTS. PATIENT VERBALIZED UNDERSTANDING. WILL CONTINUE TO MONITOR
--- NOTE | 2019-03-18 15:28 | NUR ---
SOCIAL SERVICE, OSCAR IS TALKING TO PT DISCUSSING CARE MANAGEMENT.
[2019-03-18 16:00] VITALS: BP 133/64
--- NOTE | 2019-03-18 17:20 | NUR ---
ADMINISTERED DILATIN. EDUCATED ON INDICATION AND SIDE EFFECTS. PATIENT VERBALIZED UNDERSTANDING. WILL CONTINUE TO MONITOR.
[2019-03-18 20:00] VITALS: BP 131/53
[2019-03-19] VITALS: BP 103/52
[2019-03-19] MEDS: NACL 0.9% 1,000 ML IV SCH ×2 (03:37→12:16)
--- NOTE | 2019-03-19 03:40 | NUR ---
PT SLEEPING, EASILY AROUSABLE, VITAL SIGNS STABLE, DENIES ANY PAIN, AMBULATED TO BR USING WALKER, VOIDED FREELY, BACK TO BED AND RESUMED IVF, MONITORED CLOSELY.
[2019-03-19 04:00] VITALS: BP 123/56
[2019-03-19] MEDS: LEVOTHYROXINE 0.05 MG TAB PO SCH (05:52)
--- NOTE | 2019-03-19 06:00 | NUR ---
AM LABS DRAWN, DUE SYNTHROID MEDICATION ADMINISTERED, TOLERATED WELL, DENIES ANY PAIN, NO SEIZURE EPISODE THE WHOLE SHIFT, IVF INFUSING WELL, MONITORED CLOSELY.
[2019-03-19 06:39] LABS: ANION GAP 13.9 (8-16); CARBON DIOXIDE 26.3 mmol/L (21-32); CREATININE 0.7 mg/dL (0.6-1.3); POTASSIUM 3.2 mmol/L (3.5-5.1)
--- NOTE | 2019-03-19 07:12 | NUR ---
PT SLEEPING, NO SIGNS OF DISTRESS, BEDSIDE REPORT GIVEN TO [place]INK [place] FOR CONTINUITY OF CARE.
--- NOTE | 2019-03-19 07:13 | NUR ---
RECEIVED PATIENT FROM SITE DAMAGE PREVENTION TECHNICIAN RNMELITA. PATIENT IS ASLEEP. NO SIGNS OF DISTRESS NOTED. RESPIRATIONS EVEN AND UNLABORED. IV ON RIGHT HAND 20G RUNNING NS 0.9% 100 ML/HR. IV IS PATENT, DRESSING IS DRY AND INTACT. BED IN LOW POSITION. CALL LIGHT IS WITHIN REACH. WILL CONTINUE THE PLAN OF CARE.
[2019-03-19 07:18] LABS: BASOPHILS % (AUTO) 0.7 % (0.0-2.0); EOSINOPHILS # (AUTO) 0.2 K/uL (0-0.4); EOSINOPHILS % (AUTO) 3.7 % (0.0-4.0); HEMOGLOBIN 12.2 g/dL (12.0-16.0); LYMPHOCYTES # (AUTO) 1.6 K/uL (2.5-16.5); LYMPHOCYTES % (AUTO) 32.1 % (20.5-51.1); MEAN CORPUSCULAR HEMOGLOBIN 30 pg (27-31); MEAN CORPUSCULAR HGB CONC 34 g/dL (33-37); MEAN CORPUSCULAR VOLUME 88.1 fL (80-94); MONOCYTES # (AUTO) 0.5 K/uL (0.8-1.0); MONOCYTES % (AUTO) 9.3 % (1.7-9.3); NEUTROPHILS # (AUTO) 2.7 K/uL (1.8-7.7); NEUTROPHILS % (AUTO) 54.2 % (42.2-75.2); PLATELET COUNT (AUTO) 207 K/uL (140-450); RED BLOOD CELL COUNT(AUTO) 4.09 MIL/uL (4.20-5.40); RED CELL DISTRIBUTION WIDTH 15.5 % (11.6-13.7); WHITE BLOOD COUNT (AUTO) 5.1 K/uL (4.8-10.8)
[2019-03-19 08:00] VITALS: BP 137/49
[2019-03-19] MEDS: CLOPIDOGREL 75 MG TAB PO SCH (08:45)
[2019-03-19] MEDS: PHENYTOIN 100 MG CAPER PO SCH ×2 (08:45→14:15)
[2019-03-19] MEDS: LOSARTAN 50 MG TAB PO SCH (08:45)
[2019-03-19] MEDS: ATORVASTATIN 20 MG TAB PO SCH (08:45)
--- NOTE | 2019-03-19 08:48 | NUR ---
GIVEN PO MEDICATIONS. PATIENT IS EDUCATED ON PURPOSE AND SIDE EFFECTS. PATIENT VERBALIZED UNDERSTANDING. PATIENT TOLERATED WELL. BED IN LOW POSITION. CALL LIGHT IS WITHIN REACH. WILL CONTINUE TO MONITOR.
--- NOTE | 2019-03-19 10:30 | NUR ---
PATIENT IS SLEEPING AT THIS TIME. NO SIGNS OF DISTRESS. PATIENT IS IN ROOM AIR. BED IN LOW POSITION. CALL LIGHT IS WITHIN REACH. WILL CONTINUE TO MONITOR.
[2019-03-19 12:00] VITALS: BP 105/42
--- NOTE | 2019-03-19 12:16 | NUR ---
POTASSIUM LEVEL 3.2. GIVEN KCI 40 MEQ AT 68 ML/HR IVF PER MD ORDER. EDUCATED PATIENT ON INDICATION OF POTASSIUM AND SIDE EFFECTS. VERBALIZED UNDERSTANDING. PATIENT IS CURRENTLY EATING LUNCH AT THIS TIME. NO SIGNS OF DISTRESS NOTED. WILL CONTINUE TO MONITOR.
[2019-03-19] MEDS ORDERED: POTASSIUM CHLORIDE 40 MEQ, LIDOCAINE MPF 1% 25 MG in NACL 0.9% 250 ML IV SCH (12:30)
--- NOTE | 2019-03-19 13:20 | NUR ---
Touch Up Painter Hand Note: I met with patient at bedside. Patient speaks Faroese. Patient is in agreement with home health service. I informed her Garden Worker Rubina will contact health insurance plan to arrange home health services. I verified her home address [address] [place] [address].
[2019-03-19] MEDS ORDERED: PHEN-1900 PO (13:50)
--- NOTE | 2019-03-19 14:15 | NUR ---
PT IS AWAKE AND SISTER ON THE BEDSIDE, PHENYTOIN WAS GIVEN AND PARAMETER CHECKED. WILL MONITOR PT.
--- NOTE | 2019-03-19 15:55 | NUR ---
DISCHARGED PT TO HOME VIA WHEELCHAIR ACCOMPANIED BY DAUGHTER, INSTRUCTIONS AND TEACHINGS REGARDING MEDICATIONS WERE GIVEN TO PT AND VERBALIZED UNDERSTANDING, PERIPHERAL LINE AND ARM BANDS REMOVED, HEART MONITOR WAS HANDED TO SOCIAL MEDIA INTERN, BP IS 110/65, PULSE IS 64, TEMPERATURE IS 97.6, PT DENIES PAIN AND NO SIGN OF DISTRESS NOTED, PT IS STABLE AT THIS TIME.
== END 2019-03-19 15:55 | disposition home health service (06) | DRG 206 ==
LOC: MED 16:46 → MMU 20:18
PROVIDERS: ADMIT General Practice; ATTEND General Practice
DX: M94.0 Chondrocostal junction syndrome [Tietze] (principal); Z68.42 Body mass index [BMI] 45.0-49.9, adult; I69.351 Hemiplegia and hemiparesis following cerebral infarction affecting right dominant side; E87.6 Hypokalemia; E66.9 Obesity, unspecified; Z71.3 Dietary counseling and surveillance; E66.01 Morbid (severe) obesity due to excess calories; E03.9 Hypothyroidism, unspecified; I11.9 Hypertensive heart disease without heart failure; I69.398 Other sequelae of cerebral infarction; R56.9 Unspecified convulsions; R26.9 Unspecified abnormalities of gait and mobility; K76.0 Fatty (change of) liver, not elsewhere classified
CPT/HCPCS: 36415; 71045; 76705; 80048; 80053; 80185; 81003; 83036; 83690; 83735; 83880; 84100; 84443; 84484; 85025; 85610; 85730; 87081; 93005; 97110; 97116; 97161-GP; 97530; 99285; J2001; J2270; J3480; J7030; Q0092

== ENCOUNTER 2022-11-01 13:37 | Emergency (ER) | payer OTHER ==
[~2022-11-01] VITALS: Ht 162.6 cm; Wt 90.7 kg
[~2022-11-01 13:37] MED LIST changes: +ATOR40TA40 PO; +CHLO25TA33 PO; -IBUP-974 PO; +LACT10SO4 PO; +LEVO0.0511 PO; -LISI10TA11 PO; +LOSA50TA66 PO; +POTA20TA49 PO; +RANI150T8 PO
[2022-11-01 13:47] VITALS: BP 130/58; PULSE 76; RESP 1; TEMP 98.1; O2SAT 98
[2022-11-01 14:13] LABS: BASOPHILS % (AUTO) 0.6 % (0.0-2.0); EOSINOPHILS # (AUTO) 0.2 K/uL (0-0.4); EOSINOPHILS % (AUTO) 2.4 % (0.0-4.0); HEMATOCRIT 40.5 % (36-48); HEMOGLOBIN 13.9 g/dL (12.0-16.0); LYMPHOCYTES % (AUTO) 30.7 % (20.5-51.1); MEAN CORPUSCULAR HEMOGLOBIN 30 pg (27-31); MEAN CORPUSCULAR HGB CONC 34 g/dL (33-37); MEAN CORPUSCULAR VOLUME 86.6 fL (80-94); MONOCYTES # (AUTO) 0.3 K/uL (0.8-1.0); MONOCYTES % (AUTO) 4.7 % (1.7-9.3); NEUTROPHILS % (AUTO) 61.6 % (42.2-75.2); PLATELET COUNT (AUTO) 209 K/uL (140-450); RED BLOOD CELL COUNT(AUTO) 4.67 MIL/uL (4.20-5.40); RED CELL DISTRIBUTION WIDTH 14.5 % (11.6-13.7); WHITE BLOOD COUNT (AUTO) 6.5 K/uL (4.8-10.8)
--- NOTE | 2022-11-01 14:39 | NUR ---
Dr. Quinteros evaluating patient at bedside.
--- NOTE | 2022-11-01 14:39 | NUR ---
PATIENT PRESENTS TO ED WITH CP . PT STATES . DENIES N/V/D; SKIN IS PINK/WARM/DRY; AAOX4 WITH EVEN AND STEADY GAIT; LUNGS CLEAR BL; HR EVEN AND REGULAR; PT DENIES FEVER,C/O CP, SOB,; PATIENT STATES PAIN OF 5/10 AT THIS TIME; VSS; PATIENT POSITIONED FOR COMFORT; HOB ELEVATED; BEDRAILS UP X2; BED DOWN. ER MD MADE AWARE OF PT STATUS.PLAN OF CARE DISCUSSED WITH GOOD UNDERSTANDING, CALL LIGHT WITH IN REACH
[2022-11-01 14:45] LABS: ALBUMIN 3.8 g/dL (3.4-5.0); ANION GAP 10.7 (8-16); ASPARTATE AMINOTRANSFERASE 18 U/L (15-37); CHLORIDE 97 mmol/L (98-107); GLUCOSE 153 mg/dL (74-106); SODIUM SERUM 137 mmol/L (136-145); TOTAL BILIRUBIN 0.4 mg/dL (0.0-1.0); UREA NITROGEN, BLOOD 15 mg/dL (7-18)
[2022-11-01 14:51] LABS: POTASSIUM 2.7 mmol/L (3.5-5.1)
[2022-11-01] MEDS ORDERED: POTASSIUM CHLORIDE 10 MEQ TABER PO ONE (14:55)
--- NOTE | 2022-11-01 15:10 | NUR ---
MEDICATED PT ORDERED.
--- NOTE | 2022-11-01 15:30 | NUR ---
Dr. Quinteros re-evaluating patient at bedside.
[2022-11-01 15:33] LABS: MAGNESIUM 2.1 mg/dL (1.8-2.4); PHOSPHORUS 3.5 mg/dL (2.5-4.9)
--- NOTE | 2022-11-01 15:38 | NUR ---
Lab at bedside.
[2022-11-01] MEDS ORDERED: PHEN100C14 PO (15:53)
[2022-11-01] MEDS ORDERED: PHEN100C3 PO (15:53)
[2022-11-01] MEDS ORDERED: POTA8TAB19 PO (15:54)
[2022-11-01] MEDS ORDERED: LEVO75CA3 PO (15:54)
--- NOTE | 2022-11-01 15:54 | NUR ---
med rec complete.
--- NOTE | 2022-11-01 16:12 | NUR ---
Updated Iris at [facility] on patients condition, she said she will call Ede Stallings and update us later.
--- NOTE | 2022-11-01 17:29 | NUR ---
Pt report recieved from PARVIN Waters. Transfer of care at this time. Assumed care. Pt pending transfer to [facility].
--- NOTE | 2022-11-01 17:30 | NUR ---
Report given to LINK Coombs for transfer of care.
[2022-11-01 18:00] VITALS: O2SAT 98
--- NOTE | 2022-11-01 18:13 | NUR ---
ELVIRA AT TO TRANSPORT PT TO [facility]
--- NOTE | 2022-11-01 18:19 | NUR ---
REPORT PROVIDED TO LINK NELSON AT [facility]. COMPLETE TELEPHONE REPORT PROVIDED. VERBAL BEDSIDE REPORT PROVIDED TO Maco ALTAM[facility]. TRANSFER FORM/PAPERWORK/DUPS ENDORSED TO [facility]. PT LEFT IN STABLE CONDITION BY LIANET ESCORTED OUT BY [facility].
[2022-11-01 18:28] VITALS: BP 115/54; PULSE 62; RESP 16; TEMP 98.6
== END 2022-11-01 18:13 | disposition short-term general hospital (02) ==
LOC: MED 13:37
DX: R07.9 Chest pain, unspecified (principal); E87.6 Hypokalemia; I10 Essential (primary) hypertension; E03.9 Hypothyroidism, unspecified; Z79.899 Other long term (current) drug therapy; Z20.822 Contact with and (suspected) exposure to COVID-19; Z86.73 Personal history of transient ischemic attack (TIA), and cerebral infarction without residual deficits
CPT/HCPCS: 36415; 71046; 80053; 83735; 83880; 84100; 84484; 85025; 93005; 99285